=== PATIENT | male | born 1965 ===

== ENCOUNTER 2022-12-18 08:00 | Outpatient (RCR) | payer OTHER, SELFPAY ==
--- NOTE | 2022-11-19 17:14 | PTOPEVAL1 ---
Assessment and note entered by Carole Silva, PT Evaluation Information Assessment Status Evaluation Diagnosis right shoulder pain Onset November 2021 Subjective Information Was driving and restraining his labrodor retriever . Thinks may have pushed back and doesn't remember pain in the moment but that day knew shoulder Wasn't right . Thought maybe muscle strain, decided to use left arm more. Currently is discomfort and can feel clicking . Is sore in the mornings, and 8 y/o child wants to play sports and has to warm up shoulder to throw. Still at times it still weird movement or angle will cause feeling of discomfort and potential weakness . The most discomfort is reaching in the back seat every time. Reported Pain Level Pain Score 0: Self Report Assessment PT Clinical Summary Pt presents with complaints of right shoulder pain that has persisted approx 1 year with some increased discomfort over the last two months. Pt history and presenation suggestive of possible rotator cuff tear and irritation. Demo's poor posture with (+) kyphosis and forward/rounded scapular postures likely effecting irritation and healing of muscles. Pt will benefit from physical therapy to address deficits and improve pain Plan of Care Interventions Electrical Stimulation,Hot Pack/Cold Pack,Manual Therapy,Neuro Re-education,Patient/Caregiver Educati,Therapeutic Activities,Therapeutic Exercise,Ultrasound PT Services Indicated Yes Treatment Frequency and 1-2x weekly x 4 weeks Duration These treatments will address the objective and functional deficits as defined above. The patient will be advanced safely and appropriately in order for the patient to progress towards his/her prior level of function. Additional exercises will be introduced and as well as a comprehensive home exercise program upon discharge, if needed, ?to ensure carryover of functional gains achieved in the clinic. This treatment plan has been reviewed and agreement upon by the patient.
--- NOTE | 2022-11-19 17:14 | OPREHPOC ---
Outpatient Therapy Plan of Care This is a Multidisciplinary Plan of Care that may contain components documented by all disciplines (PT, OT, and ST.) PT Problem 1 PT Problem #1 Knowledge Deficit PT Goal 1 Goal Pt will be independent in HEP Target Visit 8 PT Goal 2 Goal Pt will verbalize understanding of diagnosis and prognosis Target Visit 8 PT Problem 2 PT Problem #2 Pain PT Goal 1 Goal Pt will report greatest pain level at 2/10 or less at worst rating since starting therapy Target Visit 6 PT Goal 2 Goal Pt will report resolution of pain Target Visit 8 PT Problem 3 PT Problem #3 Impaired Strength PT Goal 1 Goal Pt will demo strength of 4/5 in all tested planes PT Goal 2 Goal Pt will demo equal supraspinatus strength PARISE and LUE
--- NOTE | 2022-12-19 16:28 | PTOPPROG ---
Assessment and note entered by Carole Silva, PT Assessment Status Progress Diagnosis right shoulder pain Onset November 2021 Subjective Information Pt reports feeling more knowledgeable about issue, and has a lot more ways to manage discomfort. Initial goals of having more knowledge of dealing wiht posture and that there is nothing structurally wrong. Reports exercises help knock off another 2-3% of difficulty. Generally doing good with throwing ball with son. Clicking/popping is reduced, soreness in the mornings is better. Reaching back in seat hasn't done much Assessment PT Clinical Summary Pt reports being happy with his progress and the knowledge he has gained from therapy. Has improved in posture and discomfort, has met 4/6 goals, partially met 1/6, and unmet 1/6. Pt has opted to continue his HEP independently however would like to have the option of returning to therapy if HEP does not continue to improve remainder of symptoms . If patient does not return to therapy in 30 days , will be discharged from plan of care. Plan of Care Interventions Electrical Stimulation,Hot Pack/Cold Pack,Manual Therapy,Neuro Re-education,Patient/Caregiver Educati,Therapeutic Activities,Therapeutic Exercise,Ultrasound PT Services Indicated Yes Treatment Frequency and 4 visits as needed in 30 days. Duration These treatments will address the objective and functional deficits as defined above. The patient will be advanced safely and appropriately in order for the patient to progress towards his/her prior level of function. Additional exercises will be introduced and as well as a comprehensive home exercise program upon discharge, if needed, ?to ensure carryover of functional gains achieved in the clinic. This treatment plan has been reviewed and agreement upon by the patient.
== END 2023-02-12 08:32 | disposition home or self-care (01) ==
LOC: ANHPT 08:00
PROVIDERS: PCP Physician Assistant Medical; Visit Provider Physician Assistant Medical
DX: M25.511 Pain in right shoulder (principal)
CPT/HCPCS: 97014; 97110; 97140; 97161; 97750; G0283